=== PATIENT | female | born 1940 | race Caucasian/White ===

== ENCOUNTER 2022-12-18 12:29 | Emergency (ER) | payer MEDICARE, OTHER ==
[2022-12-18 13:33] VITALS: BP 171/75; PULSE 80
[2022-12-18] MEDS ORDERED: Acetaminophen/Codeine 300-30 MG Tab PO ONE (13:47)
== END 2022-12-18 15:04 | disposition home or self-care (01) ==
LOC: JP.ED 12:29
DX: K08.89 Other specified disorders of teeth and supporting structures (principal); Z79.899 Other long term (current) drug therapy; M19.90 Unspecified osteoarthritis, unspecified site; Z79.82 Long term (current) use of aspirin
CPT/HCPCS: 99282; A9270